=== PATIENT | female | born 1950 | race Caucasian/White ===

== ENCOUNTER 2017-05-17 17:20 | Inpatient (IN) | payer MEDICARE ==
[~2017-05-17] VITALS: Ht 152.4 cm; Wt 64.4 kg
[~2017-05-17 17:20] MED LIST: LEVO125T8 PO
--- NOTE | 2017-05-17 17:40 | NUR ---
AMRTY MELGOZA FROM [facility] AT THE BEDSIDE FOR PSYCH EVAL.
--- NOTE | 2017-05-17 17:42 | NUR ---
PT PLACED ON 5150 HOLD BY PET EVALUATER.
[2017-05-17] MEDS ORDERED: RISP3TAB14 PO (17:43)
[2017-05-17] MEDS ORDERED: BENZ0.5T3 PO (17:43)
[2017-05-17] MEDS ORDERED: RISP2TAB23 PO (17:43)
[2017-05-17] MEDS ORDERED: DIVA250T4 PO (17:43)
[2017-05-17] MEDS ORDERED: LEVO88TA5 PO (17:43)
[2017-05-17] MEDS ORDERED: PANT40TA4 PO (17:43)
[2017-05-17 17:55] LABS: BASOPHILS # (AUTO) 0.1 K/uL (0.0-8.0); BASOPHILS % (AUTO) 1.3 % (0.0-2.0); EOSINOPHILS # (AUTO) 0.1 K/uL (0.0-0.7); EOSINOPHILS % (AUTO) 0.7 % (0.0-7.0); HEMATOCRIT 43.8 % (37-47); HEMOGLOBIN 14.6 G/DL (12.0-16.0); LYMPHOCYTES # (AUTO) 1.2 K/UL (0.8-4.8); LYMPHOCYTES % (AUTO) 14.3 % (20.5-51.5); MEAN CORPUSCULAR HEMOGLOBIN 30.7 UUG (27.0-31.0); MEAN CORPUSCULAR HGB CONC 33 g/dL (32.0-37.0); MEAN CORPUSCULAR VOLUME 92.4 FL (81.0-99.0); MONOCYTES # (AUTO) 1.1 K/UL (0.1-1.30); MONOCYTES % (AUTO) 13.3 % (0.0-11.0); NEUTROPHILS # (AUTO) 6.1 K/UL (1.8-8.9); NEUTROPHILS % (AUTO) 70.4 % (38.5-71.5); PLATELET COUNT (AUTO) 352 K/UL (150-450); RED BLOOD CELL COUNT(AUTO) 4.75 MIL/UL (4.2-5.4); WHITE BLOOD COUNT (AUTO) 8.6 K/UL (4.0-11.2)
[2017-05-17 18:04] LABS: *BILIRUBIN,URIN NEGATIVE (NEGATIVE); *BLOOD, URINE 1+ (NEGATIVE); *COLOR,URINE YELLOW (YELLOW); *KETONES,URINE NEGATIVE (NEGATIVE); *PROTEIN,URINE NEGATIVE (NEGATIVE); *UROBILINOGEN,URINE 0.2 E.U./dl (NORMAL); LEUKOCYTE ESTERASE ,URINE 3+ (NEGATIVE); NITRITE, URINE NEGATIVE (NEGATIVE); PH,URINE 7.5 (5.0-8.0); UGLUCOSE NEGATIVE (NEGATIVE)
[2017-05-17 18:05] LABS: ETHANOL < 3 MG/DL (0-0)
[2017-05-17 18:06] LABS: ALANINE AMINOTRANSFERASE 33 U/L (14-59); ALKALINE PHOSPHATASE 145 U/L (50-136); ASPARTATE AMINOTRANSFERASE 25 U/L (15-37); BILIRUBIN,DIRECT 0.2 mg/dL (0.0-0.2); BILIRUBIN,TOTAL 0.5 mg/dL (0.2-1.0); CARBON DIOXIDE 27 mmol/L (21-32); CHLORIDE 95 mmol/L (98-107); CREATININE 0.7 mg/dL (0.6-1.3); GLUCOSE 93 mg/dL (74-106); POTASSIUM 4.3 mmol/L (3.5-5.1); TOTAL PROTEIN, SERUM 7.8 g/dL (6.4-8.2); UREA NITROGEN, BLOOD 10 mg/dL (7-18)
[2017-05-17 18:08] LABS: *CLARITY,URINE SLIGHTLY CLOUDY (CLEAR)
[2017-05-17 18:10] LABS: ACETAMINOPHEN < 2.0 ug/mL (10-30)
[2017-05-17 18:14] LABS: *AMPHETAMINE, URINE NEGATIVE (NEGATIVE); *BARBITURATE, URINE NEGATIVE (NEGATIVE); *CANNABINOID, URINE NEGATIVE (NEGATIVE); *COCCAINE, URINE NEGATIVE (NEGATIVE); *OPIATE, URINE NEGATIVE (NEGATIVE); *PHENCYCLIDINE SCREEN,URINE NEGATIVE (NEGATIVE)
[2017-05-17 18:22] LABS: BACTERIA,URINE MODERATE /HPF (NONE SEEN); SQUAMOUS EPITHELIAL CELL,UR FEW /HPF (NONE SEEN); WBC,URINE 20-50 /HPF (0-3)
--- NOTE | 2017-05-17 18:42 | NUR ---
pt transfered to mhu in stable condition. hospital tray provided for pt to take to mhu.
[2017-05-17 19:00] VITALS: BP 154/91
--- NOTE | 2017-05-17 21:00 | NUR ---
Pt is a 66 year old female admit to [facility] on a 5150 for grave disability. Per hold pt refused to talk about board and care that stated patient has been acting paranoid, responding to internal stimuli, not sleeping and non compliant with care. Upon face to face pt is AOx1, pt is confused/disoriented and disorganized, unable to assess. Observed rambling and talking to self, wandering unit. No aggressive or combative behavior noted. Pt seen by Dr Marquez and head grease maker. No acute distress noted. Safety measures initiated.
[2017-05-18 07:30] VITALS: BP_SYST 114; BP_SYST 150; BP_DIAS 59; BP_DIAS 95
[2017-05-18 16:53] VITALS: BP 117/65
[2017-05-18 20:01] VITALS: BP 117/69
--- NOTE | 2017-05-19 06:46 | NUR ---
Pt REFUSED AM MEDS DESPITE EXTENSIVE PROMPTING, MEDS WERE WASTED. Pt HAD AN EPISODE OF RESTLESSNESS AND WAS GIVEN RESTORIL 7.5mg WITH GOOD EFFECT. NO AGGRESSIVE BEHAVIORS. Pt RESTING IN BED, NO ACUTE DISTRESS.
[2017-05-19 07:30] VITALS: BP 110/53
--- NOTE | 2017-05-19 15:00 | NUR ---
COMPLIANT WITHDRAWN AND QUIET SAFE ENVIRONMENT PROVIDED PATIENT ENCOURAGED TO GO TO THE ACTIVITY ROOM AND PARTICIPATE WITH THE OTHER PATIENTS.
[2017-05-19 15:09] VITALS: BP 113/56
[2017-05-19 20:30] VITALS: BP 145/75
--- NOTE | 2017-05-19 22:00 | NUR ---
received to care, up in rach chair, talking to self, pleasant upon approach. compliant with medications and staff direction. PRN restoril was given at 2139, for insomnia. as of 2199, she remains awake, in the rach chair. remains restless, talking to self. no distress noted. will continue to monitor closely.
--- NOTE | 2017-05-19 23:30 | NUR ---
assisted to bed.
--- NOTE | 2017-05-20 00:43 | NUR ---
remains awake, and restless. attempted to climb out of bed. PRN ativan was given and she was assisted back to the rach chair. currently at nurses station. no distress noted. will continue to monitor closely.
--- NOTE | 2017-05-20 02:00 | NUR ---
assisted back to bed.
--- NOTE | 2017-05-20 06:00 | NUR ---
slept 4.0 hours, total. assisted with AM care, and shower. currently sitting in the rach chair. no distress noted. will continue to monitor closely.
[2017-05-20 07:30] VITALS: BP 137/86
--- NOTE | 2017-05-20 11:30 | NUR ---
CONFUSED DISORIENTED ALERT TO NAME ONLY COMPLIANT WITH MEDICATIONS AND CARE.WILL CONTINUE TO PROVIDE SAFE AND THERAPEUTIC ENVIRONMENT AT ALL TIMES.
--- NOTE | 2017-05-20 12:25 | NUR ---
Initial DC Plan: Pt arrived from [facility] [[address] [place] [address]; ]. SW will follow up with the facility to verify if pt can return. SW will continue to attempt to contact conservator Lori Chapin [[phone]] and listed primary contact Ana Rosa Ballesteros [[phone]]. SW will follow up with MD, patient, and pt's conservator to develop appropriate discharge plans. SW will form a safe and proper discharge plan.
--- NOTE | 2017-05-20 18:00 | NUR ---
UNEVENTFUL DAY REMAIN CONFUSED AND DISORIENTED BUT ALERT TO NAME ONLY LOOKS DEPRESSED AND WITHDRAWN ENCOURAGED TO VERBALISE FEELINGS AND PARTICIPATE IN ACTIVITIES.
[2017-05-20 20:44] VITALS: BP 148/60
--- NOTE | 2017-05-20 22:00 | NUR ---
received to care, lying in bed, asleep, but easy to awaken. remains confused and disoriented. observed to be taking to self, at times. compliant with medications, snack, and being assisted to the bathroom. as of 2199, she remains asleep, in bed. no distress noted. will continue to monitor closely.
--- NOTE | 2017-05-21 06:00 | NUR ---
slept 7.5 hours, total
[2017-05-21 07:30] VITALS: BP 109/54
--- NOTE | 2017-05-21 09:00 | NUR ---
PT IN [facility] FOR SAFETY, PT IS VERY CONFUSED AND HYPERVERBAL, PT TOOK ALL AM MEDS WITH NO PROBLEM, CONTINUE TO MONITOR FOR SAFETY, ALL NEEDS MET.
--- NOTE | 2017-05-21 12:00 | NUR ---
PT IS CALMER, REMAINS IN GERICHAIR, ALL NEEDS MET.
[2017-05-21 16:00] VITALS: BP 123/92
[2017-05-21 20:00] VITALS: BP 136/80
--- NOTE | 2017-05-21 22:00 | NUR ---
received to care, up in rach chair, talking to self, but pleasant, upon approach. compliant with medications and staff direction. as of 2199, she is asleep, in bed. no distress noted. will continue to monitor closely.
--- NOTE | 2017-05-22 03:43 | NUR ---
pt is now awake, and restless. she was assisted to the bathroom, and PRN ativan was given. currently in bed. will continue to monitor.
--- NOTE | 2017-05-22 04:10 | NUR ---
appears to be asleep. no distress noted.
--- NOTE | 2017-05-22 06:00 | NUR ---
slept 6.5 hours, total. assisted with AM care, and shower. currently sitting in the rach chair. no distress noted. will continue to monitor closely.
[2017-05-22 07:30] VITALS: BP 123/73
[2017-05-22 15:26] VITALS: BP 119/79
[2017-05-22 20:13] VITALS: BP 128/74
[2017-05-23 07:30] VITALS: BP 119/71
--- NOTE | 2017-05-23 08:06 | NUR ---
Patient 5.30 hours this shift. Cooperative with medication administration with encouragement. Limited disclosure of treatment issues. Monitoring and observations continue to promote client safety and wellness in the hospital environment.
[2017-05-23 15:36] VITALS: BP 110/63
[2017-05-23 20:30] VITALS: BP 119/73
--- NOTE | 2017-05-24 06:50 | NUR ---
ANXIOUS AND RESTLESS AT TIMES THROUGHOUT THE NIGHT. RESTORIL 7.5mg ADMINISTERED AT 0005 WITH GOOD EFFECT. SHOWERED THIS MORNING. SLEPT 4.5 HOURS. IN NO ACUTE DISTRESS AT THIS TIME.
[2017-05-24 07:30] VITALS: BP 119/65
[2017-05-24 07:56] LABS: BILIRUBIN,TOTAL 0.5 mg/dL (0.2-1.0); MAGNESIUM 1.9 mg/dL (1.8-2.4); PHOSPHOROUS 4.6 mg/dL (2.5-4.9); POTASSIUM 3.9 mmol/L (3.5-5.1); TOTAL PROTEIN, SERUM 7.1 g/dL (6.4-8.2)
--- NOTE | 2017-05-24 08:18 | NUR ---
Discharge Planning Note: MICHELLE spoke with pt's conservator Maria L Ballesteros [[phone]]. Maria L stated she will fax documentation for conservatorship to SW.
[2017-05-24 08:20] LABS: HEMATOCRIT 44.4 % (37-47); HEMOGLOBIN 15.3 G/DL (12.0-16.0); MEAN CORPUSCULAR HEMOGLOBIN 32.3 UUG (27.0-31.0); MEAN CORPUSCULAR HGB CONC 34 g/dL (32.0-37.0); MEAN CORPUSCULAR VOLUME 93.9 FL (81.0-99.0); RED BLOOD CELL COUNT(AUTO) 4.73 MIL/UL (4.2-5.4); WHITE BLOOD COUNT (AUTO) 7.2 K/UL (4.0-11.2)
[2017-05-24 08:21] LABS: BASOPHILS % (AUTO) 1.1 % (0.0-2.0); EOSINOPHILS % (AUTO) 1.7 % (0.0-7.0); LYMPHOCYTES % (AUTO) 22.9 % (20.5-51.5); MONOCYTES % (AUTO) 11.2 % (0.0-11.0); NEUTROPHILS % (AUTO) 63.1 % (38.5-71.5); PLATELET COUNT (AUTO) 316 K/UL (150-450)
--- NOTE | 2017-05-24 08:36 | NUR ---
Discharge Planning Note: MICHELLE spoke with Tiffanie at [facility] [ ] who stated pt can return to the facility upon discharge.
--- NOTE | 2017-05-24 14:26 | NUR ---
Patient visible in dayroom sitting in gerichair watching tv, confused and forgetful, took medications with no problem, ate 100% breakfast and lunch. Will continue to monitor for safety and needs.
[2017-05-24 17:09] VITALS: BP 137/80
[2017-05-24 20:06] VITALS: BP 129/81
--- NOTE | 2017-05-24 22:00 | NUR ---
received to care, up in rach chair, talking to self, but pleasant, upon approach. compliant with medications and staff direction. as of 2199, she remains up in chair, awake, and talking to herself. no distress noted. will continue to monitor closely.
--- NOTE | 2017-05-24 22:45 | NUR ---
PRN restoril given for insomnia.
--- NOTE | 2017-05-24 23:15 | NUR ---
assisted to bed.
--- NOTE | 2017-05-24 23:40 | NUR ---
appears to be asleep. no distress noted.
--- NOTE | 2017-05-25 06:00 | NUR ---
slept 6.0 hours, total
[2017-05-25 07:57] VITALS: BP 106/58
[2017-05-25 16:08] LABS: *BILIRUBIN,URIN NEGATIVE (NEGATIVE); *BLOOD, URINE NEGATIVE (NEGATIVE); *CLARITY,URINE CLEAR (CLEAR); *COLOR,URINE YELLOW (YELLOW); *KETONES,URINE NEGATIVE (NEGATIVE); *PROTEIN,URINE NEGATIVE (NEGATIVE); LEUKOCYTE ESTERASE ,URINE TRACE (NEGATIVE); NITRITE, URINE NEGATIVE (NEGATIVE); PH,URINE 6.5 (5.0-8.0); UGLUCOSE NEGATIVE (NEGATIVE)
[2017-05-25 16:25] LABS: BACTERIA,URINE FEW /HPF (NONE SEEN); RBC,URINE 0-3 /HPF (0-3); SQUAMOUS EPITHELIAL CELL,UR FEW /HPF (NONE SEEN)
[2017-05-25 16:26] VITALS: BP 116/64
[2017-05-25 20:19] VITALS: BP 132/76
--- NOTE | 2017-05-26 06:24 | NUR ---
Pt slept approx 8 hrs through the night. No behavrioral problems noted.
[2017-05-26 07:30] VITALS: BP 111/71
[2017-05-26 16:00] VITALS: BP 139/77
--- NOTE | 2017-05-26 18:40 | NUR ---
PT REMAINS CONFUSED AND UP IN CHLOE CHAIR MOST OF SHIFT EXCEPT FOR BATHROOM BREAKS MED COMPLIANT IN AM CONTINUE TO MONITOR FOR SAFETY.
[2017-05-26 20:35] VITALS: BP 118/72
--- NOTE | 2017-05-27 06:11 | NUR ---
Restoril 7.5mg PO PRN was given at 0000. Patient slept 3.30 hours through the night. Pt noted talking to herself last night. she remains medication compliant at this time.
[2017-05-27 07:30] VITALS: BP 135/72
--- NOTE | 2017-05-27 14:04 | NUR ---
Discharge Planning Note: SW attempted to call pt's conservator Maria L [[phone]] to discuss discharge planning. SW called twice, but there was no answer and no voicemail box. SW will try to contact again.
[2017-05-27 15:00] VITALS: BP 118/61
[2017-05-27 20:16] VITALS: BP 148/80
--- NOTE | 2017-05-27 22:00 | NUR ---
received to care, lying in bed, talking to self. assisted to the bathroom, and back to bed, but she attempted to get up, without assistance, several times, for no apparent reason, so she was assisted back up into the rach chair, for safety. compliant with medications, and staff direction. as of 2199, she remains at the nurses station, for safety. currently talking to self, eating a snack. no distress noted. will continue to monitor closely.
--- NOTE | 2017-05-27 22:17 | NUR ---
PRN restoril given for insomnia.
--- NOTE | 2017-05-27 22:50 | NUR ---
appears calmer, now. assisted to bed.
--- NOTE | 2017-05-27 23:15 | NUR ---
appears to be asleep. no distress noted.
--- NOTE | 2017-05-28 06:00 | NUR ---
slept 7.0 hours, total. assisted with AM care, and shower. currently sitting in the rach chair. no distress noted. will continue to monitor closely.
[2017-05-28 07:30] VITALS: BP 136/64
--- NOTE | 2017-05-28 13:35 | NUR ---
Discharge Planning Note: MICHELLE faxed placement inquiry to admissions at [facility] [ ; [phone]]. MICHELLE spoke with Moon who stated she needs to go over the case with her DON. MICHELLE will follow up with Moon this afternoon.
--- NOTE | 2017-05-28 13:47 | NUR ---
Discharge Planning Note: MICHELLE attempted to call patients' DPOA Maria L Ballesteros [[phone]] to discuss discharge planning. There was no answer, MICHELLE left a voicemail. MICHELLE will try to call again this afternoon. Addendum: 05/28/17 at 1350 by BRYCE MARTINEZ Maria L Ballesteros is patient's conservator, not DPOA [[phone]].
--- NOTE | 2017-05-28 14:20 | NUR ---
Discharge Planning Note: MICHELLE faxed placement inquiry to [place] at [facility] [ ; fax: [phone]]. MICHELLE will follow up with [place] regarding patient.
--- NOTE | 2017-05-28 15:02 | NUR ---
Discharge Planning Note: SW attempted to call patient's conservator's supervisor bridges and buildings to discuss discharge plans. MICHELLE left a voicemail for the supervisor bridges and buildings [[phone]].
--- NOTE | 2017-05-28 15:22 | NUR ---
Discharge planning note: MICHELLE alerted Tiffanie at [facility] [ ] that Dr. Marquez is requesting SNF placement for the pt before returning to the facility. MICHELLE spoke with Moon at [facility] [[phone]] who stated she needs to speak with the pt's conservator before making a final decision about accepting the pt. MICHELLE will follow up with Moon.
[2017-05-28 15:28] VITALS: BP 113/61
[2017-05-28 20:45] VITALS: BP 121/80
--- NOTE | 2017-05-29 06:55 | NUR ---
COMPLIANT WITH MEDICATIONS, COOPERATIVE WITH CARE. NO COMBATIVE OR AGGRESSIVE BEHAVIORS DURING SHIFT. SLEPT 6 HOURS.
[2017-05-29 07:30] VITALS: BP 138/80
[2017-05-29 15:00] VITALS: BP 139/52
[2017-05-29 20:57] VITALS: BP 155/80
[2017-05-30 07:47] VITALS: BP 133/69
[2017-05-30 16:41] VITALS: BP 133/71
[2017-05-30 20:13] VITALS: BP 133/76
[2017-05-31 07:30] VITALS: BP 121/67
--- NOTE | 2017-05-31 08:25 | NUR ---
Discharge Planning Note: SW attempted to contact patient's conservator Maria L Ballesteros [[phone]] to discuss discharge plans. There was no answer, SW left a voicemail. MICHELLE spoke with Moon at [facility] [ ] to discuss patient. Moon stated that she has not been able to get a hold of pt's conservator and that she will try to reach her again. MICHELLE will follow up with pt's conservator and [facility] later today.
--- NOTE | 2017-05-31 11:15 | NUR ---
Discharge Planning Note: MICHELLE faxed a placement inquiry to [place] at [facility] [[phone]; fax: [phone]]. MICHELLE will follow up with Norman to see if they can accept the pt.
--- NOTE | 2017-05-31 11:30 | NUR ---
Discharge Planning Note: MICHELLE spoke with Tiffanie at [facility] [ ] who stated they will accept the patient back.
--- NOTE | 2017-05-31 11:51 | NUR ---
DC Plan: Patient arrived from [facility] [[address] [place] [address]; [phone]] and will discharge back to the facility via ambulance at 2pm. MICHELLE spoke with Tiffanie at [facility] to confirm discharge plan. SW left a message for patient's conservator Maria Ljesse Ballesteros, as well as the on duty worker Mariah [[phone]] detailing patient's discharge plans. Patient will follow up with Dr. Marquez [Psychiatrist] and Dr. Huntley [Cabinetmaker Helper].
--- NOTE | 2017-05-31 13:26 | NUR ---
Called [facility] and spoke to nurse Sara. Was told that their preferred Pharmacy is [facility] . Called in medical prescriptions under Matthew Rucker NP to Pharmacist
--- NOTE | 2017-05-31 15:30 | NUR ---
GPS: Nursing Notes: Discharge Notes: Patient is awake and responding to her name, cooperative and pleasant with staff, following staff directions, ambulatory, denies any SI/HI, denies any AH/VH, denies any pain or discomfort, denies any SOB, discharge to [facility] at [address] [place] [address] , Dr. Marquez (psychiatrist) and Dr. Huntley (specimen transporter) will continue with aftercare at the facility, took all her belongings with her, transported via ambulance to facility, prescription and instructions package given to shirt operator in order to give to facility.
--- NOTE | 2017-05-31 15:43 | NUR ---
Discharge Planning Note: MICHELLE spoke with the on duty worker Mariah at patient's conservator office [[phone]]. Mariah requested Dr. Marquez sign a form stating patient may return to [facility]. MICHELLE left form for Dr. Marquez in his mailbox. MICHELLE called Mariah again at about 3:40pm and left a voicemail stating MICHELLE will fax form back when available. MICHELLE reiterated discharge plan for patient to return to [facility] that was initially agreed upon with patient's conservator Maria L Ballesteros [[phone]].
== END 2017-05-31 15:30 | DRG 885 ==
LOC: ER 17:21 → GPS 18:36
PROVIDERS: ADMIT Psychiatry & Neurology Psychiatry; ATTEND Internal Medicine
DX: F25.0 Schizoaffective disorder, bipolar type (principal); Z91.14 Patient's other noncompliance with medication regimen; N39.0 Urinary tract infection, site not specified; Z91.19 Patient's noncompliance with other medical treatment and regimen; E03.9 Hypothyroidism, unspecified; Z79.899 Other long term (current) drug therapy; Z87.891 Personal history of nicotine dependence; F41.9 Anxiety disorder, unspecified; R45.4 Irritability and anger; M62.81 Muscle weakness (generalized)
CPT/HCPCS: 36415; 80164; 80307; 83735; 84100; 84443; 85025; 93005; 97116; 97530; A4663; G0480; G0480-TC; J3490